=== PATIENT | male | born 1990 | race Caucasian/White ===

== ENCOUNTER 2017-02-11 07:43 | Emergency (ER) | payer OTHER ==
--- NOTE | ~2017-02-11 | ENPV ---
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 Venous hemodynamics were evaluated with color flow and spectral Doppler. FINDINGS: Normal venous duplex study of the left lower extremity. There is no evidence of deep or superficial venous thrombosis. The right common femoral vein was imaged as well and found to be negative. IMPRESSION: NEGATIVE LEFT LOWER EXTREMITY VENOUS DOPPLER. Procedure Type of Study: Veins:Lower Extremities DVT Study, Lower Extremity Left. Indications for Study:Pain in Limb and Swelling of Limb. Patient Status:Routine. Study Location:Inpatient Portable. Technical Quality:Adequate visualization. Velocities are measured in cm/s ; Diameters are measured in cm Right Lower Extremities DVT Study Measurements Right 2D and Doppler Measurements + + + + +------+------+ + !Location !Visualized!Compressibility!Thrombosis!Signal!Reflux!Reflux ! ! ! ! ! ! ! !(sec) ! + + + + +------+------+ + !GSV Thigh !Yes !Yes !None !Phasic! ! ! + + + + +------+------+ + !Common !Yes !Yes !None !Phasic! ! ! !Femoral ! ! ! ! ! ! ! + + + + +------+------+ + Left Lower Extremities DVT Study Measurements Left 2D and Doppler Measurements + + + + +------+------+ + !Location !Visualized!Compressibility!Thrombosis!Signal!Reflux!Reflux ! ! ! ! ! ! ! !(sec) ! + + + + +------+------+ + !GSV Thigh !Yes !Yes !None !Phasic!No ! ! + + + + +------+------+ + !Common !Yes !Yes !None !Phasic!No ! ! !Femoral ! ! ! ! ! ! ! + + + + +------+------+ + !Prox !Yes !Yes !None !Phasic!No ! ! !Femoral ! ! ! ! ! ! ! + + + + +------+------+ + !Mid Femoral!Yes !Yes !None !Phasic!No ! ! + + + + +------+------+ + !Dist !Yes !Yes !None !Phasic!No ! ! !Femoral ! ! ! ! ! ! ! + + + + +------+------+ + !Popliteal !Yes !Yes !None !Phasic!No ! ! + + + + +------+------+ + !Gastroc !Yes !Yes !None !Phasic!No ! ! + + + + +------+------+ + !PTV !Yes !Yes !None !Phasic!No ! ! + + + + +------+------+ + !Peroneal !Yes !Yes !None !Phasic!No ! ! + + + + +------+------+ + Signature dtt: Vincent Carrera dtdangelo: 02/11/17 0838 Physician Self Edit
--- NOTE | ~2017-02-11 | ER ---
PATIENT'S NAME: WANDY OLIVER [facility] AGE: 26 Y [address] ROOM: [place] [address] LOCATION: [facility] ADMIT DATE: 02/11/2017 ER/Outpatient Report DISCHARGE DATE: FAMILY PHYSICIAN: Brennen Quiñones MD ATTENDING PHYSICIAN: Jensen Cassidy Admission date and time documented on the medical record. I saw the patient at 0800 hours. CHIEF COMPLAINT: Left lateral, mid proximal, left lower leg pain and swelling. HISTORY OF PRESENT ILLNESS: This patient is a 26-year-old male, presented to the emergency room with a 5- day history of pain, swelling of his left mid proximal lateral left lower leg. Injured it when he bumped the leg into a lawnmower 5 days ago. It continues to be painful and swollen. He is ambulatory, walking on it. No other injuries, no other complaints. No history of clotting disorders or bleeding disorders. HOME MEDICATIONS: See attached medication list. ALLERGIES: TRAMADOL. SOCIAL HISTORY: Nonsmoker and nondrinker. SIGNIFICANT PAST MEDICAL HISTORY: Negative. OPERATIONS: Shoulder surgery. ROS: All systems reviewed by me are negative with the exception of those discussed in the history of present illness. PHYSICAL EXAMINATION: VITAL SIGNS: Temperature 97.9, pulse 79, respirations 16, blood pressure 140/87, O2 saturation on room air was 97%. EXTREMITIES: On examination of the left leg, the patient has swelling, tenderness, mid to proximal, lateral left lower leg. No ecchymosis, no redness, no open wounds, no abrasions. PATIENT'S NAME: WANDY OLIVER [facility] AGE: 26 Y [address] ROOM: [place] [address] LOCATION: [facility] ADMIT DATE: 02/11/2017 ER/Outpatient Report DISCHARGE DATE: FAMILY PHYSICIAN: Brennen Quiñones MD ATTENDING PHYSICIAN: Jensen Cassidy NEUROVASCULAR: Intact. Pulses intact. Range of motion of the ankle, knee, and hip were intact. No swelling of the ankle. No pain in the ankle. IMAGING DATA: X-ray of the left tib-fib showed no fracture or dislocation. We will review x- ray with radiologist. Venous Doppler of the left leg showed no evidence of DVT. Did have a subcutaneous hematoma in the area of injury, see radiology report. IMPRESSION: Contusion with hematoma, swelling, pain left mid to proximal, lateral lower leg. PLAN: The patient dismissed home. Observation. Activity as tolerated. Ice, heat, or combination to sore areas intermittently as needed. Aleve or ibuprofen 2 as needed for pain. Follow up with personal physician as needed. Discussion ensued with the patient concerning my findings and recommendations, he understands. MD KRYSTLE STARK/modl /[id number] d: 02/11/17938 t: 02/12/1708, OUTPATIENT REPORT
== END 2017-02-11 09:30 | disposition disaster alternative care site (69) ==
LOC: GMED 07:43
DX: S80.12XA Contusion of left lower leg, initial encounter (principal); Z88.8 Allergy status to other drugs, medicaments and biological substances; W22.8XXA Striking against or struck by other objects, initial encounter